=== PATIENT | male | born 1955 | race Caucasian/White ===

== ENCOUNTER 2017-05-04 16:49 | Emergency (ER) | payer MEDICAID ==
[~2017-05-04] VITALS: Ht 188 cm; Wt 112.0 kg
[~2017-05-04 16:49] MED LIST: ATOR40TA16 PO; BENI40TA3 PO; GABA300C5 PO; NORC5TAB PO; PREG300 PO; SPIRCAP INH; SYMB160A INH; [UNRECOGNIZED DRUG - SUPPLY] TOPICAL
[2017-05-04 16:51] VITALS: BP 149/88; PULSE 88; RESP 17; TEMP 98.6; O2SAT 95
[2017-05-04] MEDS ORDERED: ACETAMINOPHEN/HYDROcodone 325 MG/5 MG TAB PO ONE (17:30)
[2017-05-04] MEDS ORDERED: LEVOFLOXACIN 500 MG TAB PO ONE (17:30)
[2017-05-04] MEDS ORDERED: ATOR10TA15 PO (17:44)
[2017-05-04] MEDS ORDERED: QUET150XR PO (17:44)
[2017-05-04] MEDS ORDERED: LEVA500T20 PO (17:59)
[2017-05-04] MEDS ORDERED: HYDR-3533 PO (17:59)
--- NOTE | 2017-05-04 17:59 | PD ---
HPI Chief Complaint: Complaint Time Seen by Provider: 17:14 Travel History International Travel<30 days: No Contact w/Intl Traveler<30days: No Traveled to known affect area: No History of Present Illness HPI This is a 61-year-old man who presents to the emergency department complaining of painful swelling behind his right testicle. He states this started about a week or so ago. He was started overnight and gradually worsening with tender induration of the testicle. He has a history of hypertension. He is on a urinary difficulties including incontinence, hesitancy, weak stream. He sees the urologist. He is not prone to UTIs. He is not sexually active. 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 Reported Meds & Prescriptions Reported Meds & Active Scripts Active Benicar (Olmesartan) 40 Mg Tab 40 Mg PO DAILY Spiriva Handihaler (Tiotropium Inh) 18 Mcg Cap 18 Mcg INH DAILY 1 capsule = 18 mcg Symbicort Inh (Budesonide/Formoterol Fumarate) 160-4.5 Mcg/Act Aero 2 Puff INH Q12HR Reported Atorvastatin (Atorvastatin Calcium) 10 Mg Tab 10 Mg PO HS Seroquel XR (Quetiapine Fumarate) 150 Mg Tab 150 Mg PO DAILY Ramsay (Hydrocodone-Acetaminophen) 5-325 mg Tab 1 Tab PO TID PRN Gabapentin 300 Mg Cap 300 Mg PO TID Lyrica (Pregabalin) 300 Mg Cap 300 Mg PO BID Review of Systems Except as stated in HPI: all other systems reviewed are Neg Physical Exam Narrative GENERAL: Well-appearing 61-year-old man, no acute distress. SKIN: Focused skin assessment warm/dry. HEAD: Atraumatic. Normocephalic. CARDIOVASCULAR: Regular rate and rhythm. No murmur appreciated. RESPIRATORY: No accessory muscle use. Clear to auscultation. Breath sounds equal bilaterally. GASTROINTESTINAL: Abdomen soft, non-tender, nondistended. Hepatic and splenic margins not palpable. MUSCULOSKELETAL: No obvious deformities. No edema. : Normal external male genitalia with some testicular swelling on the right side confined mostly to the epididymis with epididymal tenderness and induration. There is no real swelling of the testicle itself and there is no real testicular tenderness. Phallus is normal. There is no discharge. Data Data Last Documented VS Vital Signs Date Time Temp Pulse Resp B/P Pulse Ox O2 Delivery O2 Flow Rate FiO2 05/04/17 16:51 98.6 88 17 149/88 95 Orders Cath For Specimen (05/04/17 17:24) Ua Includes Microscopic (05/04/17 17:24) Urine Culture (05/04/17 17:24) Gc And Chlamydia Pcr (05/04/17 17:24) Levofloxacin (Levaquin) (05/04/17 17:30) Acetamin-Hydrocod 325-5 Mg (Ramsay 5-325 (05/04/17 17:30) MDM Medical Decision Making Medical Screen Exam Complete: Yes Emergency Medical Condition: Yes Differential Diagnosis Epididymitis, orchitis, torsion, gangrene, other Narrative Course Medical decision making This is a 61-year-old man who presents to the emergency department with a tender induration and swelling of the epididymis on the right. He likely has epididymitis. I will see any real orchitis. I don't see any evidence of torsion. He is incontinent and has prostate problems and likely has epididymitis from coliform bacteria. Recommend Levaquin. Will check culture. Outpatient follow-up with his urologist. Diagnosis Primary Impression: Epididymitis Additional Instructions: Take antibiotics as prescribed. Follow-up with urologist in the next week. Use Lortab if needed for pain. Return to the emergency department for any worsening pain redness swelling fevers or any other new or worsening symptoms. Med/Other Pt SpecificInfo: Prescription(s) given Scripts Hydrocodone-Acetaminophen (Lortab)5-325 Mg Tab1-2 Tab PO Q6H PRN (PAIN) #12 TAB Prov:George Colin MD 05/04/17 Levofloxacin (Levaquin)500 Mg Tablet1 Tab PO DAILY 10 Days Prov:George Colin MD 05/04/17 Disposition: 01 DISCHARGE HOME Condition: Stable George Colin MD May 04, 2017 17:59
[2017-05-04 18:13] LABS: BACTERIA, URINE FEW /hpf; BLOOD, URINE NEG (NEG); COMMENT (UR) CATH; GLUCOSE,URINE NEG (NEG); KETONE, URINE NEG (NEG); MUCUS URINE FEW /lpf (OCC); NITRITE,URINE POS (NEG); SQUAMOUS EPITHELIAL CELL URINE <1 /hpf (0-5); URINE COLOR YELLOW (YELLW/STRAW)
[2017-05-04 21:02] LABS: CHLAMYDIA PCR NOT DETECTED (NOT DETECT); NEISSERIA PCR NOT DETECTED (NOT DETECT)
== END 2017-05-04 18:12 | disposition home or self-care (01) ==
LOC: NEPD 16:49
DX: N45.1 Epididymitis (principal); B96.20 Unspecified Escherichia coli [E. coli] as the cause of diseases classified elsewhere
CPT/HCPCS: 81001; 87077; 87086; 87186; 87491; 87591; 99284; P9612